=== PATIENT | female | born 1960 | race Caucasian/White ===

== ENCOUNTER → 2016-10-16 | Day surgery (SDC) | payer OTHER, MEDICARE ==
[~2016-10-16] MED LIST: ACETAMINOPHEN500 M2 PO; ALBUTEROL MININEB NEB; ALBUTEROL17 GM INH; BUPROPION XL300 MG PO; CALCIUM; CALCIUM 500 +1 EAC2 PO; DESYREL50 MG PO; DICYCLOMINE HCL10 MG PO; DIGOX125 MCG PO; HYDROXYZINE HCL25 M1 PO; LAMOTRIGINE100 M1 PO; LANTUS100 U/ML SUBQ; METFORMIN PO; NEURONTIN800 MG PO; NOVOLIN N100 UNIT/1; OCUVITE EYE +1 EACH PO; OXYGEN; PANTOPRAZOLE SO40 MG PO; PREDNISONE10 MG PO; PROBIOTIC1 EAC1 PO; SPIRIVA18 MCG INH; VENLAFAXINE HC225 MG PO; VIT D3; VITAMIN D35000 UNIT PO; XANAX1 MG PO; XOLAIR150 MG/1.2 INJ
--- NOTE | ~2016-10-16 | OR ---
Unit #: [id number] #: [id number] Patient: KAIA AGOSTO [id number] [address] [address] [id number] O MR#: [id number] NAME: KAIA AGOSTO ROOM: Date of Procedure: 10/16/2016 Admission Date: 10/16/2016 Surgeon: Mark Avila M.D. : 1960 Attending Physician: Elvin Avila Referring Physician: Ana Alberts M.D. Primary Care Physician: Ana Alberts M.D. [facility] OPERATIVE NOTE PROCEDURE PERFORMED Cervical epidural steroid injection under x-ray guided needle placement with provider administered conscious sedation. PREOPERATIVE DIAGNOSES 1. Acute cervical radiculitis. 2. Spinal stenosis, cervical spine. 3. Herniated disk, C5-C6. 4. Degenerative joint disease, cervical spine. 5. Degenerative disk disease, cervical spine. 6. Facet arthrosis, C4-C5 right-sided. INDICATIONS FOR PROCEDURE The patient presents today with a 6 months long history of acute cervical radiculitis, which has progressively worsened despite aggressive conservative measures consisting of medical and physical therapy management. She presents today with a crescendo pattern advanced of her disease and an MRI report which shows disease at C4-C5 and C5-C6 with most notably a stenosis at C5-C6. After discussing risks and benefits of proceeding today with cervical approach epidural steroid injection with return to this clinic for potential repeat on 11/20/2016, the patient agreed this would be the appropriate course of action. DESCRIPTION OF PROCEDURE She was then taken to the operating room, where she was prepped and draped in a sterile manner. Standard monitors were applied. She was sedated with 2 mg of IV Versed and cervical epidural space was accessed at the C5-C6 level using loss of resistance technique and x-ray guidance. Needle placement was confirmed with injection of 2 mL of Omnipaque. There was good superior and inferior flow at the C5-C6 level placement. Total x-ray time required was 4 seconds. Following successful needle placement confirmation, the patient received an injectate containing 2 mL of 0.25% bupivacaine and 80 mg of methylprednisolone. She tolerated this procedure well. She was discharged home with followup instructions, which include return dates as described above. Dictated by... Mark Avila M.D. JRG/rony TD: 10/16/2016 13:28 Unit #: [id number] #: [id number] Patient: KAIA AGOSTO JOB #: [id number] CC: Ana Alberts M.D. [facility] OPERATIVE NOTE Page 1 of 1 X Elvin Avila MD X PROCEDURE OPERATIVE NOTE
== END | disposition home or self-care (01) ==
LOC: CCSC 10-09 09:30
DX: M50.122 Cervical disc disorder at C5-C6 level with radiculopathy (principal); M48.02 Spinal stenosis, cervical region; M47.22 Other spondylosis with radiculopathy, cervical region; J45.909 Unspecified asthma, uncomplicated; Z86.19 Personal history of other infectious and parasitic diseases; Z88.0 Allergy status to penicillin; Z88.6 Allergy status to analgesic agent; Z88.8 Allergy status to other drugs, medicaments and biological substances; Z79.51 Long term (current) use of inhaled steroids; Z79.4 Long term (current) use of insulin; Z79.899 Other long term (current) drug therapy; Z99.81 Dependence on supplemental oxygen; Z98.41 Cataract extraction status, right eye; Z98.42 Cataract extraction status, left eye; Z96.1 Presence of intraocular lens; Z98.890 Other specified postprocedural states
CPT/HCPCS: J1040; J2250

== ENCOUNTER → 2016-11-20 | Day surgery (SDC) | payer OTHER, MEDICARE ==
--- NOTE | ~2016-11-20 | OR ---
Unit #: [id number] #: [id number] Patient: KAIA AGOSTO [id number] [address] [address] [id number] O MR#: [id number] NAME: KAIA AGOSTO ROOM: Date of Procedure: 11/20/2016 Admission Date: 11/20/2016 Surgeon: Mark Avila M.D. : 1960 Attending Physician: Elvin Avila Primary Care Physician: Ana Alberts M.D. [facility] OPERATIVE NOTE PROCEDURE PERFORMED Cervical epidural steroid injection under x-ray guided needle placement with provider administered conscious sedation. PREOPERATIVE DIAGNOSES 1. Acute cervical radiculitis. 2. Spinal stenosis, cervical spine. 3. Herniated disk, C5-C6. 4. Degenerative joint disease, cervical spine. 5. Degenerative disk disease, cervical spine. 6. Facet arthralgia, cervical spine. 7. Facet arthrosis, cervical spine. INDICATIONS FOR PROCEDURE The patient presents today status post one previous cervical approach epidural steroid injection for an acute radiculitis, which had failed to respond to conservative measures. She states she got mild relief at best and that relief was not complete nor was completely long lasting as she has had a return of symptoms since her initial visit. After discussing risks and benefits of proceeding today with C5-C6 epidural steroid injection, the patient agreed this would be appropriate course of action. She was scheduled to follow up here on 02/26/2017, at which point, she have been evaluated for potential radiofrequency ablation for her cervical facet arthrosis and we evaluated more determine the appropriate course of action movement forward. She was instructed if she was asymptomatic or has gotten no relief from her visit to this clinic that she should follow up with her primary provider for directions as to how to move forward with her painful syndromes. DESCRIPTION OF PROCEDURE After these discussions, Ms. Jo was taken to the operating room, where she was prepped and draped in a sterile manner. Standard monitors were applied. She was sedated with 2 mg of IV Versed and the cervical epidural space accessed at the C5-C6 level using loss of resistance technique and x-ray guidance. Needle placement was confirmed with injection of 2 mL of Omnipaque. There was good superior and inferior flow at the C5-C6 placed needle. Following successful needle placement confirmation, the patient received an injectate containing 4 mL normal saline and 80 mg of methylprednisolone. She tolerated this procedure well. She was discharged home with followup instructions, which include return to this clinic as described above. Unit #: [id number] #: [id number] Patient: KAIA AGOSTO Dictated by... Edilia Chopra/rony TD: 11/20/2016 14:15 JOB #: [id number] [facility] OPERATIVE NOTE Page 1 of 1 X Elvin Avila MD X PROCEDURE OPERATIVE NOTE
== END | disposition home or self-care (01) ==
LOC: CCSC 12:34
DX: M50.122 Cervical disc disorder at C5-C6 level with radiculopathy (principal); M47.22 Other spondylosis with radiculopathy, cervical region; M48.02 Spinal stenosis, cervical region; J45.909 Unspecified asthma, uncomplicated; Z79.899 Other long term (current) drug therapy; Z88.8 Allergy status to other drugs, medicaments and biological substances; Z88.5 Allergy status to narcotic agent; Z88.0 Allergy status to penicillin; Z79.4 Long term (current) use of insulin; Z98.41 Cataract extraction status, right eye; Z98.42 Cataract extraction status, left eye; Z96.1 Presence of intraocular lens; Z99.81 Dependence on supplemental oxygen
CPT/HCPCS: J1040; J2250